=== PATIENT | male | born 1970 | race Caucasian/White ===

== ENCOUNTER 2016-10-21 09:09 | Day surgery (SDC) | payer OTHER ==
[2016-10-17 11:26] VITALS: BMI 25.8
[~2016-10-21 09:09] MED LIST: LACTATED RINGERS 1,000 ML IV SCH
[2016-10-21 09:32] VITALS: TEMP 97.8
[2016-10-21] MEDS ORDERED: LIDOCAINE 1% 20 ML VIAL (10MG/ML) FOR IV START INTRADERMA ONE (09:36)
[2016-10-21] MEDS ORDERED: PROPOFOL 10 MG/ML 20 ML VIAL IV ONE (10:54)
--- NOTE | 2016-10-21 11:30 | P.PCN ---
Date of Procedure: 10/21/16 Preoperative Diagnosis: Postoperative Diagnosis: Procedure(s) Performed: Procedure: Total colonoscopy. Preoperative diagnosis: Screening for neoplasia. Postoperative diagnosis: 1. Mild sigmoid diverticulosis with no evidence of acute diverticulitis or strictures. 2. Low-grade internal hemorrhoids without bleeding at the time of this exam. Preparation HalfLytely prep. Sedation was provided by anesthesia. Brief clinical history: The patient is a 45-year-old male who has been having issues with rectal pain and intermittent rectal bleeding. This followed a diarrheic illness few weeks earlier. At this time, his bowel movements are back to normal and is not having any abdominal symptoms or anemia. There is no family history of colon cancer or inflammatory bowel disease. Procedure: With the patient on his left lateral decubitus position and after informed consent and adequate sedation, the perianal area was inspected and it did not show any fissures or fistulas. There were no masses felt on digital rectal examination. The Olympus CFQ 160L video colonoscope was then inserted in the rectum in the usual fashion and advanced to the cecum. The mucosa appeared healthy. No polyps or tumors were seen. There was occasional small diverticular orifices seen in the sigmoid. I retroflexed the endoscope in the rectum before the endoscope was withdrawn. Low-grade internal hemorrhoids were noted but there was no evidence of bleeding. The patient tolerated the procedure well. Plan: The patient was reassured. Discussed dietary measures and local care for hemorrhoids. He will follow up with you as planned and I recommended repeat exam in 10 years. Implants: Indications for Procedure: Operative Findings: Description of Procedure:
[2016-10-21 11:38] VITALS: RESP 18
[2016-10-21 11:41] VITALS: BP 112/75; PULSE 64
== END 2016-10-21 12:07 | disposition home or self-care (01) ==
LOC: ORWHC2ENDO 09:09
DX: K57.30 Diverticulosis of large intestine without perforation or abscess without bleeding (principal); K64.8 Other hemorrhoids; K21.9 Gastro-esophageal reflux disease without esophagitis; F17.200 Nicotine dependence, unspecified, uncomplicated; Z79.1 Long term (current) use of non-steroidal anti-inflammatories (NSAID); Z79.899 Other long term (current) drug therapy
CPT/HCPCS: 45378; J2704

== ENCOUNTER 2024-09-08 23:24 | Inpatient (IN) | payer OTHER ==
[2024-09-08] MEDS: ASPIRIN 81 MG PO STA (23:40)
[2024-09-08] MEDS: HEPARIN SODIUM 1,000 UN/ML (10ML VL) IV ONE (23:41)
[2024-09-08] MEDS: ONDANSETRON 4 MG/2 ML VIAL IVP STA (23:41)
[2024-09-08] MEDS: ATORVASTATIN 80 MG TAB PO STA (23:41)
--- NOTE | 2024-09-08 23:44 | ED ---
General Adult HPI - General Chief complaint: Chest Pain Stated complaint: Chest pain Time Seen by Provider: 09/08/24 23:32 Source: patient, RN notes reviewed, old records reviewed Mode of arrival: ambulatory Limitations: no limitations - History of Present Illness Initial comments: 53-year-old male, current smoker presenting with substernal chest pain and pressure for the past several hours associated vomiting and diaphoresis. Patient states pain radiates to his jaw and bilateral arms. Patient has no prior history of CAD but does have a family history of coronary disease. - Related Data Home Medications Medication Instructions Recorded Confirmed Diclofenac Potassium [Cataflam] 50 mg PO TID PRN 10/17/16 10/21/16 Meloxicam 15 mg PO DAILY 10/17/16 10/21/16 Omeprazole [PriLOSEC] 20 mg PO BID 10/17/16 10/21/16 hydrOXYzine pamoate [Vistaril] 50 mg PO HS PRN 10/17/16 10/21/16 Allergies Allergy/AdvReac Type Severity Reaction Status Date / Time Penicillins Allergy Unknown Verified 09/08/24 23:31 Review of Systems ROS Statement: Those systems with pertinent positive or pertinent negative responses have been documented in the HPI. ROS Other: All systems not noted in ROS Statement are negative. Past Medical History Past Medical History: GERD/Reflux Additional Past Medical History / Comment(s): rectal pain and blood with wiping x2, dark stools x 1,tennis elbow History of Any Multi-Drug Resistant Organisms: MRSA Date of last positivie culture/infection: 12/02/22 MDRO Source:: Buttock Past Surgical History: No Surgical Hx Reported Additional Past Anesthesia/Blood Transfusion Reaction / Comment(s): never has had anesthesia or a blood transfusion. Past Psychological History: No Psychological Hx Reported Smoking Status: Vaper Past Alcohol Use History: Occasional Past Drug Use History: Marijuana - Past Family History Mother Family Medical History: No Reported History Father Family Medical History: Cancer Additional Family Medical History / Comment(s): lung General Exam Limitations: no limitations General appearance: alert, in no apparent distress Head exam: Present: atraumatic, normocephalic Eye exam: Present: normal appearance, PERRL ENT exam: Present: normal exam Neck exam: Present: normal inspection. Absent: tenderness, meningismus Respiratory exam: Present: normal lung sounds bilaterally. Absent: respiratory distress, wheezes Cardiovascular Exam: Present: regular rate, normal rhythm GI/Abdominal exam: Present: soft. Absent: distended, tenderness, guarding Extremities exam: Present: normal inspection, normal capillary refill Neurological exam: Present: alert, oriented X3 Psychiatric exam: Present: anxious Skin exam: Present: warm, intact, normal color, diaphoretic Course Vital Signs 09/08/24 09/08/24 09/08/24 23:27 23:45 23:50 Temperature 97.4 F L Pulse Rate 61 69 83 Respiratory 15 18 16 Rate Blood Pressure 104/65 113/77 103/85 O2 Sat by Pulse 100 99 98 Oximetry 09/08/24 23:55 Temperature Pulse Rate 61 Respiratory 16 Rate Blood Pressure 108/82 O2 Sat by Pulse 100 Oximetry Medical Decision Making - Medical Decision Making Was pt. sent in by a medical professional or institution (, PA, BIOPSYCHOLOGIST, urgent care, hospital, or longterm...) When possible be specific @ -No Did you speak to anyone other than the patient for history (EMS, parent, family, police, friend...)? What history was obtained from this source @ -No Did you review nursing and triage notes (agree or disagree)? Why? @ -I reviewed and agree with nursing and triage notes Were old charts reviewed (outside hosp., previous admission, EMS record, old EKG, old radiological studies, urgent care reports/EKG's, longterm records)? Report findings @ -No old charts were reviewed Differential Chest Pain: Stable Angina, Unstable Angina, STEMI, NSTEMI Aortic Dissection, Pneumothorax, Musculoskeletal, Esophageal Spasm GERD, Cholecystitis, Pancreatitis, Zoster, this is not meant to be an all-inclusive list. EKG interpreted by me (3pts min.). @Sinus rhythm with ST segment elevation in V3 V4 and aVR with reciprocal change ventricular rate of 67, MA interval 136, QRS duration 106, QTc 408 X-rays interpreted by me (1pt min.). @ -Single view chest x-ray is negative for acute cardiopulmonary disease CT interpreted by me (1pt min.). @ -None done U/S interpreted by me (1pt. min.). @ -None done What testing was considered but not performed or refused? (CT, X-rays, U/S, labs)? Why? @ -None What meds were considered but not given or refused? Why? @ -None Did you discuss the management of the patient with other professionals (professionals i.e. Dr., PA, BIOPSYCHOLOGIST, lab, RT, psych nurse, foster care social worker, adobe architect, teacher, risk control officer, disability case manager)? Give summary @ -[Dr. Malave covering for cardiology, Dr. Grimes covering for Dr. Barboza Was smoking cessation discussed for >3mins.? @ -No Was critical care preformed (if so, how long)? @ -Yes 35 minutes Were there social determinants of health that impacted care today? How? (Homelessness, low income, unemployed, alcoholism, drug addiction, transportation, low edu. Level, literacy, decrease access to med. care, fpc, rehab)? @ -No Was there de-escalation of care discussed even if they declined (Discuss DNR or withdrawal of care, Hospice)? DNR status @ -No What co-morbidities impacted this encounter? (DM, HTN, Smoking, COPD, CAD, Cancer, CVA, ARF, Chemo, Hep., AIDS, mental health diagnosis, sleep apnea, morbid obesity)? @Current smoker family history of CAD Was patient admitted / discharged? Hospital course, mention meds given and rout e, prescriptions, significant lab abnormalities, going to OR and other pertinent info. @3-year-old male presenting with substernal chest pain and pressure for the past several hours associated nausea vomiting and diaphoresis. Pain radiates to bilateral arms and the teeth and jaw. EKG shows ST segment elevation with reciprocal change, Ribbon Inker is activated. Patient given aspirin, heparin, Lipitor in the emergency department. Nitroglycerin held secondary to low systolic pressure. Patient taken urgently to the Ribbon Inker. Undiagnosed new problem with uncertain prognosis? @ -No Drug Therapy requiring intensive monitoring for toxicity (Heparin, Nitro, Insulin, Cardizem)? @ -No Were any procedures done? @ -No Diagnosis/symptom? @ -STEMI Acute, or Chronic, or Acute on Chronic? @ -Acute Uncomplicated (without systemic symptoms) or Complicated (systemic symptoms)? @ complicated Side effects of treatment? @ -No Exacerbation, Progression, or Severe Exacerbation? @ -No Poses a threat to life or bodily function? How? (Chest pain, [place], ID, pneumonia, PE, COPD, DKA, ARF, appy, cholecystitis, CVA, Diverticulitis, Homicidal, Suicidal, threat to staff... and all critical care pts) @ -Yes, ACS, arrhythmia, cardiogenic shock Critical Care Time Critical Care Time: Yes Total Critical Care Time: 35 Disposition Clinical Impression: ST elevation myocardial infarction (STEMI) Disposition: ADMITTED IP TO THIS HOSP Condition: Serious Is patient prescribed a controlled substance at d/c from ED?: No Referrals: Allyssa Barboza MD [Primary Care Provider] - 1-2 days Time of Disposition: 23:44
--- NOTE | 2024-09-08 23:56 | XR ---
EXAMINATION TYPE: XR chest 1V portable DATE OF EXAM: 09/08/2024 11:48 PM COMPARISON: None TECHNIQUE: XR chest 1V portable Portable AP radiograph of the chest. CLINICAL INDICATION:Male, 53 years old with history of chest pain; FINDINGS: Lungs/Pleura: There is no evidence of pleural effusion, focal consolidation, or pneumothorax. Pulmonary vascularity: Unremarkable. Heart/mediastinum: Cardiomediastinal silhouette is unremarkable. Musculoskeletal: No acute osseous pathology. IMPRESSION: No acute cardiopulmonary disease/process. [facility], , 09/08/2024 11:54 PM
[2024-09-09 00:02] LABS: Basophils % (A) 0 %; Eosinophils # (A) 0.1 k/uL (0-0.7); Eosinophils % (A) 1 %; HCT 49.4 % (39.0-53.0); HGB 15.9 gm/dL (13.0-17.5); Lymphocytes # (A) 1.4 k/uL (1.0-4.8); Lymphocytes % (A) 7 %; MCH 28.3 pg (25.0-35.0); MCHC 32.1 g/dL (31.0-37.0); Mean Platelet Volume 7.4; Monocytes # (A) 0.6 k/uL (0-1.0); Monocytes % (A) 3 %; Neutrophils # (A) 18.3 k/uL (1.3-7.7); Neutrophils % (A) 89 %; Platelet Count 309 k/uL (150-450); RBC 5.62 m/uL (4.30-5.90); RDW 12.6 % (11.5-15.5); WBC 20.6 k/uL (3.8-10.6)
--- NOTE | 2024-09-09 00:22 | P.CRDCN ---
History of Present Illness Consult date: 09/09/24 History of present illness: History of Present Illness: The patient is a 53-year-old male with no prior cardiac history who around 7 PM while driving started to complain of chest burning that persisted he subsequently came into the emergency room and was found to have ST segment elevation in the lateral leads with ST segment depression in the inferior and V1 and V2 leads. He has no prior cardiac history. 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 He denies any history of PND, orthopnea or peripheral edema. He continues to have some discomfort in the emergency room. He is in sinus mechanism on presentation. He has a history of smoking, he is nondiabetic no documented hypertension or hyperlipidemia. Medications: None Review of Systems: Respiratory: No history of asthma, bronchitis or recent cough. GI: No nausea or vomiting . No history of peptic ulcer disease. No recent GI bleed. : No hematuria or dysuria. Nervous System: No stroke or seizure. Physical Examination: 53-year-old male, alert oriented no apparent distress,Blood pressure 111/60, Heart rate 72 Head: Normocephalic. Eyes: Sclerae nonicteric. Neck: Good carotid upstroke, no bruit, no jugular venous distention. Lungs: Clear to auscultation. Heart: Regular rate and rhythm, S1-S2, no S3, no rub. No murmur. Abdomen: Soft nontender, positive bowel sounds no organomegaly. Extremities: No edema, intact distal pulses. Labs: Hemoglobin 15.9, WBC 20.6 EKG: Sinus mechanism with ST elevation in lead I, aVL, V3 through V5 with ST segment depression and T wave version in lead V1 V2 leads III and aVF consistent with lateral wall myocardial infarction with repeat reciprocal changes and possible posterior extension Impression: 1. Acute myocardial infarction 2. History of chronic tobacco use, vaping at this time Plan: 1. Proceed with emergent cardiac catheterization, the risks and the complications were discussed with the patient who was in full and standing in agreement 2. Depending on the results of the cardiac catheterization further recommendation will be made 3. Smoking cessation 4. Obtain an echocardiogram with Doppler 5. Thank you for this consult we will follow with you Past Medical History Past Medical History: GERD/Reflux Additional Past Medical History / Comment(s): rectal pain and blood with wiping x2, dark stools x 1,tennis elbow History of Any Multi-Drug Resistant Organisms: MRSA Date of last positivie culture/infection: 12/02/22 MDRO Source:: Buttock Past Surgical History: No Surgical Hx Reported Additional Past Anesthesia/Blood Transfusion Reaction / Comment(s): never has had anesthesia or a blood transfusion. Past Psychological History: No Psychological Hx Reported Smoking Status: Vaper Past Alcohol Use History: Occasional Past Drug Use History: Marijuana - Past Family History Mother Family Medical History: No Reported History Father Family Medical History: Cancer Additional Family Medical History / Comment(s): lung Medications and Allergies Home Medications Medication Instructions Recorded Confirmed Type Diclofenac Potassium [Cataflam] 50 mg PO TID PRN 10/17/16 10/21/16 History Meloxicam 15 mg PO DAILY 10/17/16 10/21/16 History Omeprazole [PriLOSEC] 20 mg PO BID 10/17/16 10/21/16 History hydrOXYzine pamoate [Vistaril] 50 mg PO HS PRN 10/17/16 10/21/16 History Allergies Allergy/AdvReac Type Severity Reaction Status Date / Time Penicillins Allergy Unknown Verified 09/08/24 23:31 Physical Exam Vitals: Vital Signs Temp Pulse Resp BP Pulse Ox 09/09/24 00:05 72 18 111/62 98 09/09/24 00:00 65 18 107/78 99 09/08/24 23:55 61 16 108/82 100 09/08/24 23:50 83 16 103/85 98 09/08/24 23:45 69 18 113/77 99 09/08/24 23:27 97.4 F L 61 15 104/65 100 Intake and Output 09/08/24 09/08/24 09/09/24 14:59 22:59 06:59 Other: Weight 74.843 kg Results 09/08/24 23:43 CBC 09/08/24 Range/Units 23:43 WBC 20.6 H (3.8-10.6) k/uL RBC 5.62 (4.30-5.90) m/uL Hgb 15.9 (13.0-17.5) gm/dL Hct 49.4 (39.0-53.0) % Plt Count 309 (150-450) k/uL Intake and Output 09/08/24 09/08/24 09/09/24 14:59 22:59 06:59 Other: Weight 74.843 kg Patient Weight 09/09/24 06:59 Weight 74.843 kg 09/08/24 23:43
[2024-09-09] MEDS: SODIUM CHLORIDE 0.9% 1,000 ML IV ONE (00:23)
[2024-09-09] MEDS: fentaNYL (PF) 50 MCG/1 ML VIAL IVP ONE (00:27)
[2024-09-09] MEDS: LIDOCAINE 1% INJ 10MG/ML (20 ML MDV) SQ ONE (00:27)
[2024-09-09] MEDS: MIDAZOLAM 2 MG/2 ML VIAL IVP ONE (00:29)
[2024-09-09] MEDS: VERAPAMIL SYRINGE (5 MG/10 ML) INTRAARTER ONE (00:29)
[2024-09-09] MEDS: HEPARIN SODIUM 1,000 UN/ML (10ML VL) IVP ONE (00:32)
[2024-09-09 00:39] LABS: Prothrombin Time 10.7 sec (10.0-12.5)
[2024-09-09] MEDS: PRASUGREL 10 MG TAB PO ONE (00:44)
[2024-09-09 00:49] LABS: ALT 32 U/L (4-49); AST 29 U/L (17-59); African American GFR (CKD) 79 (>60 ml/min/1.73 sqM); Albumin 4.4 g/dL (3.5-5.0); Alkaline Phosphatase 54 U/L (38-126); Anion Gap 11 mmol/L; Blood Urea Nitrogen 16 mg/dL (9-20); Calcium 9.4 mg/dL (8.4-10.2); Carbon Dioxide 26 mmol/L (22-30); Chloride 100 mmol/L (98-107); Glucose 143 mg/dL (74-99); Non-African American GFR(CKD) 68 (>60 ml/min/1.73 sqM); Potassium 4.3 mmol/L (3.5-5.1); Sodium 137 mmol/L (137-145); Total Bilirubin 0.6 mg/dL (0.2-1.3); Total Protein 6.6 g/dL (6.3-8.2)
[2024-09-09] MEDS: ATROPINE SULFATE 0.1 MG/ML 10ML SYRINGE IVP ONE (00:49)
[2024-09-09] MEDS ORDERED: NALOXONE 0.4 MG/ML 1 ML VIAL IV PRN (00:53)
[2024-09-09] MEDS: METOPROLOL TARTRATE 5 MG/5 ML VIAL IVP ONE (01:01)
[2024-09-09] MEDS: IOPAMIDOL-370 100ML BTL INJ ONE ×2 (01:06→01:16)
[2024-09-09] MEDS ORDERED: NITROGLYCERIN SL TABS 0.4 MG TAB SUBLINGUAL PRN (01:23)
[2024-09-09] MEDS ORDERED: MAG HYDROX/AL HYDROX/SIMETH 30 ML CUP PO PRN (01:23)
[2024-09-09] MEDS ORDERED: RX INFO: IV CONTRAST WAS GIVEN 1 EACH MISC MISCELLANE PRN (01:23)
[2024-09-09] MEDS ORDERED: ATROPINE SULFATE 0.1 MG/ML 10ML SYRINGE IV PRN (01:23)
[2024-09-09] MEDS ORDERED: ZOLPIDEM 5 MG TAB PO PRN (01:23)
--- NOTE | 2024-09-09 01:33 | P.CARDCATH ---
Date of Procedure: 09/09/24 Description of Procedure: Cardiac Catheterization: The patient is a 53-year-old male with known history of chronic tobacco use, no history of cardiac disease who presented with an acute myocardial infarction. Recommendations were made regarding cardiac catheterization, the risks and the complications were discussed with the patient who is in full understanding and agreement. Procedure Description: Patient was brought to metallurgical laboratory assistant in fasting semi-sedated state after receiving Fentanyl and Benadryl achieiving moderate conscious sedated state. Using Xylocaine Anesthesia and modified Seldinger technique, a 6-Libyan sheath was introduced in the right radial artery . Subsequently, selective coronary angiography was performed using a 5-Libyan 3.5 bend Rhys catheter. Multiple views of the coronary artery including hemiaxial views were obtained. The 5 Libyan pigtail catheter was used to cross the aortic valve and LVEDP was calculated. PCI: After removing the catheters a 6 Libyan AL 0.75 guiding catheter was introduced and after cannulating the right coronary ostium a 0.014 BMW J-wire was posit ioned in the distal RCA. Subsequently a 2.5 x 12 mm trek balloon was advanced and 2 inflations at 8 karlene was done. After removing the balloon a 4.0 x 33 mm Xience colt point stent was advanced and dilated at 16 karlene. After removing the balloon a [employer] [place] eye IVUS catheter was introduced and imaging was performed and revealed a distal lumen of 4.2 to 4.5 mm. The stent was well opened but under deployed proximally. Subsequently 4.0 x 20 mm NC trek balloon was advanced and 2 inflations at 10 karlene were done. After the last inflation the wire and the balloon were removed images were obtained and revealed stable successful stenting. Following that, catheter and sheath were removed. Hemostasis was obtained with deployment of vascular band . There was no immediate complication. Patient was returned to room in stable condition. Of note, the patient received a total of 6000 units of intravenous heparin as well as intra-arterial verapamil. His ACT was followed. He received an oral loading dose of prasugrel. He had an episode of ventricular fibrillation during the procedure requiring cardioversion x 1 with latter day of sinus mechanism. He had an episode of bradycardia and received IV atropine. At the end of the procedure his blood pressure and heart rate were stable. Findings: Left main: This is a short size vessel, bifurcating into LAD and left circumflex, left main has no obstructive disease LAD: This is a large size vessel, giving rise to a large proximal diagonal branch that has no obstructive disease, the mid LAD has 10 to 20% plaque, the rest of the vessel has no high-grade stenosis Left circumflex: This is a large nondominant vessel giving rise to a large obtuse marginal branch that has no evidence of obstructive disease RCA: This vessel is a dominant vessel totally occluded in the midsegment with no antegrade flow Left Ventriculogram: Not performed Hemodynamics: There was no gradient across the aortic valve, LVEDP was 18-22 mmHg Conclusion: 1. Acutely occluded mid RCA 2. Mild disease in the mid LAD 3. Successful stenting of the mid RCA with reduction of stenosis from 100% to less than 5% with TANJA-3 flow and IVUS imaging 4. Right dominance Recommendations: The patient will continue on aspirin and prasugrel without any interruption for 1 year in addition to aggressive coronary risks modification, maintaining LDL below 70 mg/dL. The importance of smoking cessation was discussed with the patient and he was referred to [place] quit line. The findings and the recommendations were discussed with the patient and the family and they were in full understanding and agreement. Duration of sedation is 50 minutes.
[2024-09-09 01:40] LABS: Glucose,Whole Blood 97 mg/dL (70-110)
[2024-09-09] MEDS: SODIUM CHLORIDE 0.9% 1,000 ML in EMPTY BAG 1 BAG IV SCH (02:00)
[2024-09-09 06:00] LABS: African American GFR (CKD) >90 (>60 ml/min/1.73 sqM); Anion Gap 7 mmol/L; Blood Urea Nitrogen 16 mg/dL (9-20); Calcium 8.6 mg/dL (8.4-10.2); Carbon Dioxide 24 mmol/L (22-30); Chloride 103 mmol/L (98-107); Glucose 129 mg/dL (74-99); Non-African American GFR(CKD) >90 (>60 ml/min/1.73 sqM); Potassium 4.1 mmol/L (3.5-5.1); Sodium 134 mmol/L (137-145)
[2024-09-09] MEDS: METOPROLOL TARTRATE 25 MG TAB PO SCH (08:12)
[2024-09-09] MEDS: ASPIRIN 81 MG PO SCH (08:17)
[2024-09-09 08:37] LABS: Chol/HDL Ratio 3.28 Ratio; LDL Cholesterol,Calculated 90.1 mg/dL (0.0-131.0); VLDL Calculation 12.76 mg/dL (5.00-40.00)
[2024-09-09] MEDS ORDERED: FLUTICASONE NASAL 50MCG/SPRAY 16GM BTL EA NOSTRIL PRN (09:19)
--- NOTE | 2024-09-09 09:24 | P.HPIM ---
History of Present Illness H&P Date: 09/09/24 Bert Hernandez is a 53-year-old patient of Dr. Barboza who presented with complaints of substernal chest pain that been going on for several hours with associated vomiting and diaphoresis. Patient also noted radiation of pain to jaw and bilateral arms. Patient has past medical history of GERD MRSA current everyday smoker vaping and marijuana use.Chest x-ray completed showing no acute cardiopulmonary disease chest x-ray completed showing no acute cardiopulmonary disease. EKG completed showing sinus rhythm with sinus rhythm and ST elevation noted in lateral leads. Troponin elevated 0.110. Cardiology team notified and patient was taken to cardiac catheterization lab patient received stent to the RCA right radial approach. Patient was transferred To the intensive care unit patient is alert and oriented x 3. Patient was started on Effient per cardiology. 2D echo has been ordered. At this time patient denies chest pain or shortness of breath. Patient denies nausea vomiting or diarrhea. Patient denies any urinary burning or frequency. Current vital signs temp 98, heart rate 57, respiratory rate 18, blood pressure 92/62 with pulse ox 98% on room air Review of Systems Please refer to HPI otherwise unremarkable Past Medical History Past Medical History: GERD/Reflux Additional Past Medical History / Comment(s): Right thumb cartiledge issue, seasonal allergies History of Any Multi-Drug Resistant Organisms: Acinetobacter (MDRO), MRSA Date of last positivie culture/infection: 12/02/22 MDRO Source:: Buttock Past Surgical History: Heart Catheterization With Stent Additional Past Anesthesia/Blood Transfusion Reaction / Comment(s): never has had anesthesia or a blood transfusion. Date of Last Stent Placement:: 09/08/2024 Past Psychological History: No Psychological Hx Reported Smoking Status: Current some day smoker, Vaper Past Alcohol Use History: Occasional Additional Past Alcohol Use History / Comment(s): <1ppd started at age 19 Past Drug Use History: Marijuana Additional Drug Use History / Comment(s): medical marijuana smokes marijuana- last used 2 days ago - Past Family History Mother Family Medical History: No Reported History Father Family Medical History: Cancer Additional Family Medical History / Comment(s): lung Medications and Allergies Home Medications Medication Instructions Recorded Confirmed Type Meloxicam 15 mg PO DAILY 10/17/16 09/09/24 History Omeprazole [PriLOSEC] 20 mg PO BID 10/17/16 09/09/24 History hydrOXYzine pamoate [Vistaril] 50 mg PO HS PRN 10/17/16 09/09/24 History Fluticasone Nasal [place] [Flonase 2 spr EA NOSTRIL BID PRN 09/09/24 09/09/24 History Nasal [place]] Montelukast [Singulair] 10 mg PO DAILY 09/09/24 09/09/24 History Allergies Allergy/AdvReac Type Severity Reaction Status Date / Time Penicillins Allergy Unknown Verified 09/09/24 08:14 Physical Exam Vitals: Vital Signs Temp Pulse Pulse Resp BP BP Pulse Ox 09/09/24 08:00 98 F 57 L 18 92/62 98 09/09/24 07:00 55 L 12 93/64 98 09/09/24 06:45 52 L 7 L 93/64 98 09/09/24 06:30 55 L 6 L 93/64 97 09/09/24 06:15 92/54 09/09/24 06:00 65 11 L 90/67 96 09/09/24 05:45 58 L 6 L 90/67 96 09/09/24 05:30 66 17 90/67 97 09/09/24 05:15 56 L 15 90/67 97 09/09/24 05:00 58 L 14 94/64 96 09/09/24 04:45 60 13 94/64 97 09/09/24 04:30 63 14 94/64 97 09/09/24 04:15 91 19 94/64 95 09/09/24 04:00 60 12 93/65 97 09/09/24 03:45 66 15 93/65 98 09/09/24 03:30 65 14 93/65 97 09/09/24 03:15 63 13 93/65 97 09/09/24 03:00 71 14 97/66 95 09/09/24 02:50 75 14 97/66 96 09/09/24 02:40 72 15 98/63 97 09/09/24 02:30 71 15 98/63 98 09/09/24 02:20 93 17 98/63 97 09/09/24 02:10 93 20 98/63 98 09/09/24 02:00 90 19 98/63 95 09/09/24 01:50 91 22 98/63 97 09/09/24 01:40 21 09/09/24 01:38 92 16 98/63 97 09/09/24 01:37 93 22 09/09/24 01:23 92 16 98/63 97 09/09/24 01:06 82 16 98/63 09/09/24 00:10 59 L 16 110/81 99 09/09/24 00:05 72 18 111/62 98 09/09/24 00:00 65 18 107/78 99 09/08/24 23:55 61 16 108/82 100 09/08/24 23:50 83 16 103/85 98 09/08/24 23:45 69 18 113/77 99 09/08/24 23:27 97.4 F L 61 15 104/65 100 Intake and Output 09/08/24 09/09/24 09/09/24 22:59 06:59 14:59 Intake Total 1225 0 Output Total 500 0 Balance 725 0 Intake: IV 900 Intake, IV Titration 225 0 Amount Sodium Chloride 0.9% 1, 225 0 000 ml In Empty Bag 1 bag @ 1 ML/KG/HR 74.843 mls/ hr IV .[id number] [facility] Rx#: [id number] Oral 100 Output: Urine 500 0 Other: Voiding Method Urinal Urinal # Voids 1 Weight 73 kg Head normocephalic Neck supple Lungs clear to auscultation bilaterally no wheezing or crackles Heart regular rate and rhythm S1-S2, no rub or gallop Abdomen is soft nontender nondistended positive bowel sounds no hepatosplenomegaly Extremities no edema Neuro alert and orientated to 3 Results CBC & Chem 7: 09/08/24 23:43 09/09/24 03:05 Labs: Abnormal Lab Results - Last 24 Hours (Table) 09/08/24 09/08/24 09/08/24 Range/Units 23:43 23:43 23:43 WBC 20.6 H (3.8-10.6) k/uL Neutrophils # 18.3 H (1.3-7.7) k/uL APTT 21.0 L (22.0-30.0) sec Sodium (137-145) mmol/L Glucose 143 H (74-99) mg/dL Troponin I (0.000-0.034) ng/mL 09/08/24 09/09/24 Range/Units 23:43 03:05 WBC (3.8-10.6) k/uL Neutrophils # (1.3-7.7) k/uL APTT (22.0-30.0) sec Sodium 134 L (137-145) mmol/L Glucose 129 H (74-99) mg/dL Troponin I 0.110 H* (0.000-0.034) ng/mL Thrombosis Risk Factor Assmnt - Choose All That Apply Each Factor Represents 1 point: Acute NH, Age 41-60 years Other Risk Factors: No Other congenital or acquired thrombophilia - If yes, enter type in comment: No Thrombosis Risk Factor Assessment Total Risk Factor Score: 2 Thrombosis Risk Factor Assessment Level: Low Risk Assessment and Plan Assessment: 1. STEMI status post stent to the RCA 2. History of GERD 3. Current everyday smoker. Patient educated greater than 3 minutes on the importance of complete smoking cessatuib nicotine patch will be ordered 4. Marijuana use 5. Leukocytosis likely reactive repeat labs ordered Cardiology services consulted 2D echo ordered Repeat labs ordered Time with Patient: Greater than 30 (Greater than 60% of the total time spent in counseling and coordination of care)
[2024-09-09] MEDS: SODIUM CHLORIDE 0.9% 500 ML 500 ML IV ONE ×2 (10:46→13:44)
--- NOTE | 2024-09-09 12:07 | CA ---
Transthoracic Echo Report Name: Bert Hernandez Age: 53 Gender: M : 1970 Exam Date: 09/09/2024 07:30 Exam Location: [facility] Ht (in): 69 Wt (lb): 168 Ordering Physician: Samara Arias MD ([id number]) Attending/Referring Phys: Cereal Supervisor Jennifer Rahman RDCS Procedure CPT: Indications: [place] Cardiac Hx: Technical Quality: Good Contrast 1: Total Dose (mL): Contrast 2: Total Dose (mL): MEASUREMENTS (Male / Female) Normal Values 2D ECHO LV Diastolic Diameter PLAX 4.2 cm 4.2 - 5.9 / 3.9 - 5.3 cm LV Systolic Diameter PLAX 3.3 cm IVS Diastolic Thickness 1.2 cm 0.6 - 1.0 / 0.6 - 0.9 cm LVPW Diastolic Thickness 1.3 cm 0.6 - 1.0 / 0.6 - 0.9 cm LV Relative Wall Thickness 0.6 RV Internal Dim ED PLAX 3.2 cm LA Systolic Diameter LX 3.6 cm 3.0 - 4.0 / 2.7 - 3.8 cm LV Diastolic Volume MOD BP 95.0 cm??? 67 - 155 / 56 - 104 cm??? LV Systolic Volume MOD BP 49.0 cm??? 22 - 58 / 19 - 49 cm??? LV Ejection Fraction MOD BP 48.4 % >= 55 % LV Cardiac Index MOD BP 1307.9 cm???/min???m??? LV Diastolic Volume MOD 4C 93.1 cm??? LV Systolic Volume MOD 4C 40.6 cm??? LV Ejection Fraction MOD 4C 56.4 % LV Cardiac Index MOD 4C 1493.5 cm???/min???m??? LV Diastolic Length 4C 8.1 cm LV Systolic Length 4C 6.5 cm LV Diastolic Volume MOD 2C 93.3 cm??? LV Systolic Volume MOD 2C 51.2 cm??? LV Ejection Fraction MOD 2C 45.1 % LV Cardiac Index MOD 2C 1197.6 cm???/min???m??? LV Diastolic Length 2C 8.5 cm LV Systolic Length 2C 7.5 cm M-MODE Aortic Root Diameter MM 3.3 cm DOPPLER AV Peak Velocity 113.7 cm/s AV Peak Gradient 5.2 mmHg Mitral E Point Velocity 102.3 cm/s Mitral A Point Velocity 69.5 cm/s Mitral E to A Ratio 1.5 MV Deceleration Time 163.7 ms MV E' Velocity 9.2 cm/s Mitral E to MV E' Ratio 11.1 TR Peak Velocity 218.1 cm/s TR Peak Gradient 19.0 mmHg Right Ventricular Systolic Press 34.1 mmHg FINDINGS Left Ventricle Left ventricular ejection fraction is estimated at 50-55 %. Left ventricular cavity size normal. Mildly increased septal wall thickness. Mildly decreased left ventricular ejection fraction. Right Ventricle Normal right ventricular size and function. Borderline PHTN Right Atrium Normal right atrial size. No right atrial thrombus or mass seen. Left Atrium Normal left atrial size. No left atrial thrombus or mass present. Mitral Valve Structurally normal mitral valve. No evidence for mitral valve prolapse. No mitral stenosis. Mild mitral regurgitation. Aortic Valve Trileaflet aortic valve. No aortic valve stenosis or regurgitation. Tricuspid Valve Structurally normal tricuspid valve. Mild tricuspid regurgitation. Pulmonic Valve Structurally normal pulmonic valve. Trace to mild pulmonic regurgitation. Pericardium No pericardial effusion. Aorta Normal size aortic root and proximal ascending aorta. CONCLUSIONS Indication: Myocardial infarction Left ventricular systolic function at the lower limits of normal with inferior and septal hypokinesis Previewed by: Dr. Rakesh Welch MD (Electronically Signed) Final Date: 09 September 2024 12:06
[2024-09-09] MEDS: MAGNESIUM SULFATE-D5W PMX 1 GM in DEXTROSE/WATER 1 100ML.BAG IVPB SCH (13:42)
[2024-09-09] MEDS: PRASUGREL 10 MG TAB PO STA (13:48)
[2024-09-09 14:27] VITALS: BMI 23.8
[2024-09-09] MEDS: PANTOPRAZOLE 40 MG TABLET PO SCH (20:41)
[2024-09-09] MEDS: ATORVASTATIN 80 MG TAB PO SCH (20:41)
[2024-09-10 03:23] LABS: Basophils % (A) 0 %; Eosinophils # (A) 0.1 k/uL (0-0.7); Eosinophils % (A) 1 %; HCT 43.3 % (39.0-53.0); HGB 13.4 gm/dL (13.0-17.5); Lymphocytes # (A) 2.2 k/uL (1.0-4.8); Lymphocytes % (A) 23 %; MCH 27.8 pg (25.0-35.0); MCV 89.8 fL (80.0-100.0); Mean Platelet Volume 8.1; Monocytes # (A) 0.8 k/uL (0-1.0); Monocytes % (A) 8 %; Neutrophils # (A) 6.1 k/uL (1.3-7.7); Neutrophils % (A) 65 %; Platelet Count 210 k/uL (150-450); RBC 4.82 m/uL (4.30-5.90); RDW 13.1 % (11.5-15.5); WBC 9.3 k/uL (3.8-10.6)
[2024-09-10 03:43] LABS: ALT 62 U/L (4-49); AST 158 U/L (17-59); African American GFR (CKD) >90 (>60 ml/min/1.73 sqM); Albumin 3.1 g/dL (3.5-5.0); Alkaline Phosphatase 40 U/L (38-126); Anion Gap 6 mmol/L; Blood Urea Nitrogen 14 mg/dL (9-20); Calcium 8.8 mg/dL (8.4-10.2); Carbon Dioxide 24 mmol/L (22-30); Chloride 108 mmol/L (98-107); Glucose 96 mg/dL (74-99); Non-African American GFR(CKD) 80 (>60 ml/min/1.73 sqM); Potassium 4.1 mmol/L (3.5-5.1); Sodium 138 mmol/L (137-145); Total Bilirubin 0.6 mg/dL (0.2-1.3); Total Protein 5.1 g/dL (6.3-8.2)
--- NOTE | 2024-09-10 08:53 | P.PN ---
Subjective Progress Note Date: 09/10/24 Bert Hernandez is a 53-year-old patient of Dr. Barboza who presented with complaints of substernal chest pain that been going on for several hours with associated vomiting and diaphoresis. Patient also noted radiation of pain to jaw and bilateral arms. Patient has past medical history of GERD MRSA current everyday smoker vaping and marijuana use.Chest x-ray completed showing no acute cardiopulmonary disease chest x-ray completed showing no acute cardiopulmonary disease. EKG completed showing sinus rhythm with sinus rhythm and ST elevation noted in lateral leads. Troponin elevated 0.110. Cardiology team notified and patient was taken to cardiac catheterization lab patient received stent to the RCA right radial approach. Patient was transferred To the intensive care unit patient is alert and oriented x 3. Patient was started on Effient per cardiology. 2D echo has been ordered. At this time patient denies chest pain or shortness of breath. Patient denies nausea vomiting or diarrhea. Patient denies any urinary burning or frequency. Current vital signs temp 98, heart rat e 57, respiratory rate 18, blood pressure 92/62 with pulse ox 98% on room air On 09/10/2024 patient was seen and examined in the ICU, he is alert and oriented x 3 in no apparent distress, he denies any symptoms at this time, there is no fever or chills no headache or dizziness no chest pain no shortness of breath no cough no nausea or vomiting no abdominal pain no diarrhea and no urinary symptoms. Blood pressure readings on the low side currently 96/67. Awaiting cardiology rounds to assess possible discharge to home today. Objective - Vital Signs Vital signs: Vital Signs Temp 98.2 F 09/10/24 00:00 Pulse 55 L 09/10/24 07:00 Resp 24 09/10/24 07:00 BP 96/67 09/10/24 07:00 Pulse Ox 97 09/10/24 07:00 FiO2 Intake & Output 09/09/24 09/10/24 09/10/24 18:59 06:59 18:59 Intake Total 2000 Output Total 0 0 0 Balance 2000 0 0 Weight 73 kg Intake: IV 1200 Magnesium Sulfate-D5w Pmx 200 1 gm In Dextrose/Water 1 100ml.bag @ 100 mls/hr IVPB Q1H BETI Rx#: [id number] Sodium Chloride 0.9% 500 1000 ml 500 ml @ 999 mls/hr IV .Q31M ONE Rx#:[id number] Intake, IV Titration 0 Amount Sodium Chloride 0.9% 1, 0 000 ml In Empty Bag 1 bag @ 1 ML/KG/HR 74.843 mls/ hr IV .[id number] [facility] Rx#: [id number] Oral 800 Output: Urine 0 0 0 Other: Voiding Method Urinal Toilet Urinal # Voids 1 1 - Exam In general patient is alert and oriented x 3 in no distress HEENT head normocephalic and atraumatic Neck is supple no JVD no goiter no lymphadenopathy no carotid bruit Chest examination is clear to auscultation no crackles no wheezing Cardiac exam reveals regular heart sounds S1 and S2 no gallops no murmurs Abdomen is soft nontender no organomegaly with normal bowel sounds Extremity exam reveals no edema no cyanosis or clubbing Neurological examination reveals no gross focal deficits - Labs CBC & Chem 7: 09/10/24 02:36 09/10/24 02:36 Labs: Abnormal Lab Results - Last 24 Hours (Table) 09/10/24 Range/Units 02:36 Chloride 108 H (98-107) mmol/L AST 158 H (17-59) U/L ALT 62 H (4-49) U/L Total Protein 5.1 L (6.3-8.2) g/dL Albumin 3.1 L (3.5-5.0) g/dL Assessment and Plan Assessment: 1. STEMI status post stent to the RCA 2. History of GERD 3. Current everyday smoker. Patient educated greater than 3 minutes on the importance of complete smoking cessatuib nicotine patch will be ordered 4. Marijuana use 5. Leukocytosis likely reactive repeat labs ordered Cardiology services consulted 2D echo ordered Repeat labs ordered
[2024-09-10] MEDS: NICOTINE 14MG/24HR PATCH TRANSDERM SCH (09:26)
[2024-09-10] MEDS: PRASUGREL 10 MG TAB PO SCH (09:26)
[2024-09-10] MEDS: MONTELUKAST 10 MG TAB PO SCH (09:26)
[2024-09-10 16:03] VITALS: TEMP 98.2
[2024-09-10 17:09] VITALS: BP 102/70; PULSE 68; RESP 23
--- NOTE | 2024-09-10 17:55 | P.DS ---
Providers Date of admission: 09/09/24 00:54 Expected date of discharge: 09/10/24 Attending physician: Leena Grimes Consults: 09/09/24 00:53 Consult Physician Stat Consulting Provider: Samara Arias Consult Reason/Comments: STEMI Do you want consulting provider notified?: Already Contacted 09/09/24 01:23 Consult Physician Routine Consulting Provider: [facility] Consult Reason/Comments: Post Interventional Patient Do you want consulting provider notified?: Already Contacted Primary care physician: Allyssa Barboza Hospital Course: Diagnosis on discharge: 1. STEMI status post stent to the RCA 2. History of GERD 3. Current everyday smoker. Patient educated greater than 3 minutes on the importance of complete smoking cessatuib nicotine patch will be ordered 4. Marijuana use 5. Leukocytosis likely reactive repeat labs ordered Hospital course: Bert Hernandez is a 53-year-old patient of Dr. Barboza who presented with complaints of substernal chest pain that been going on for several hours with associated vomiting and diaphoresis. Patient also noted radiation of pain to jaw and bilateral arms. Patient has past medical history of GERD MRSA current everyday smoker vaping and marijuana use.Chest x-ray completed showing no acute cardiopulmonary disease chest x-ray completed showing no acute cardiopulmonary disease. EKG completed showing sinus rhythm with sinus rhythm and ST elevation noted in lateral leads. Troponin elevated 0.110. Cardiology team notified and patient was taken to cardiac catheterization lab patient received stent to the RCA right radial approach. Patient was transferred To the intensive care unit patient is alert and oriented x 3. Patient was started on Effient per cardiology. 2D echo has been ordered. At this time patient denies chest pain or shortness of breath. Patient denies nausea vomiting or diarrhea. Patient denies any urinary burning or frequency. Current vital signs temp 98, heart rate 57, respiratory rate 18, blood pressure 92/62 with pulse ox 98% on room air On 09/10/2024 patient was seen and examined in the ICU, he is alert and oriented x 3 in no apparent distress, he denies any symptoms at this time, there is no fever or chills no headache or dizziness no chest pain no shortness of breath no cough no nausea or vomiting no abdominal pain no diarrhea and no urinary symptoms. Blood pressure readings on the low side currently 96/67. Patient was evaluated by Dr Quintero cardiology, and cleared for discharge. follow up with PCP within 1 week follow up with cardiology in 1 to 2 weeks Patient Condition at Discharge: Serious Plan - Discharge Summary New Discharge Prescriptions: New Aspirin 81 mg PO DAILY 30 Days #30 tab Atorvastatin [Lipitor] 80 mg PO HS 30 Days #30 tab Prasugrel [Effient] 10 mg PO DAILY 30 Days #30 tab Nitroglycerin Sl Tabs [Nitrostat] 0.4 mg SUBLINGUAL Q5M PRN 30 Days #25 tab PRN Reason: Chest Pain Metoprolol Succinate (ER) [Toprol XL] 12.5 mg PO DAILY 30 Days #30 tab Continue hydrOXYzine pamoate [Vistaril] 50 mg PO HS PRN PRN Reason: Insomnia Meloxicam 15 mg PO DAILY Omeprazole [PriLOSEC] 20 mg PO BID Montelukast [Singulair] 10 mg PO DAILY Fluticasone Nasal [place] [Flonase Nasal [place]] 2 spr EA NOSTRIL BID PRN PRN Reason: Allergy Symptoms Discharge Medication List Meloxicam 15 mg PO DAILY 10/17/16 [History] Omeprazole [PriLOSEC] 20 mg PO BID 10/17/16 [History] hydrOXYzine pamoate [Vistaril] 50 mg PO HS PRN 10/17/16 [History] Fluticasone Nasal [place] [Flonase Nasal [place]] 2 spr EA NOSTRIL BID PRN 09/09/24 [History] Montelukast [Singulair] 10 mg PO DAILY 09/09/24 [History] Aspirin 81 mg PO DAILY 30 Days #30 tab 09/10/24 [Rx] Atorvastatin [Lipitor] 80 mg PO HS 30 Days #30 tab 09/10/24 [Rx] Metoprolol Succinate (ER) [Toprol XL] 12.5 mg PO DAILY 30 Days #30 tab 09/10/24 [Rx] Nitroglycerin Sl Tabs [Nitrostat] 0.4 mg SUBLINGUAL Q5M PRN 30 Days #25 tab 09/10/24 [Rx] Prasugrel [Effient] 10 mg PO DAILY 30 Days #30 tab 09/10/24 [Rx] Follow up Appointment(s)/Referral(s): Allyssa Barboza MD [Primary Care Provider] - 1-2 days Patient Instructions/Handouts: Heart Attack (DC), How to Stop Smoking (DC), Heart Healthy Diet (DC)
[2024-09-10] MEDS ORDERED: METOPROLOL SUCCINATE (ER) 25 MG TAB.ER.24H PO SCH (18:26)
--- NOTE | 2024-09-10 22:51 | P.PN ---
Subjective Progress Note Date: 09/10/24 History of Present Illness: The patient is a 53-year-old male with no prior cardiac history who around 7 [address] started to complain of chest burning that persisted he subsequently came into the emergency room and was found to have ST segment elevation in the lateral leads with ST segment depression in the inferior and V1 and V2 leads. He has no prior cardiac history. 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 He denies any history of PND, orthopnea or peripheral edema. He continues to have some discomfort in the emergency room. He is in sinus mechanism on presentation. He has a history of smoking, he is nondiabetic no documented hypertension or hyperlipidemia. Medications: None Review of Systems: Respiratory: No history of asthma, bronchitis or recent cough. GI: No nausea or vomiting . No history of peptic ulcer disease. No recent GI bleed. : No hematuria or dysuria. Nervous System: No stroke or seizure. Physical Examination: 53-year-old male, alert oriented no apparent distress,Blood pressure 111/60, Heart rate 72 Head: Normocephalic. Eyes: Sclerae nonicteric. Neck: Good carotid upstroke, no bruit, no jugular venous distention. Lungs: Clear to auscultation. Heart: Regular rate and rhythm, S1-S2, no S3, no rub. No murmur. Abdomen: Soft nontender, positive bowel sounds no organomegaly. Extremities: No edema, intact distal pulses. Labs: Hemoglobin 15.9, WBC 20.6 EKG: Sinus mechanism with ST elevation in lead I, aVL, V3 through V5 with ST segment depression and T wave version in lead V1 V2 leads III and aVF consistent with lateral wall myocardial infarction with repeat reciprocal changes and possible posterior extension Echocardiogram shows preserved LVEF of 55% with no major valvular abnormality Impression: 1. Acute myocardial infarction status post PCI to RCA 2. History of chronic tobacco use, vaping at this time Plan: Continue dual antiplatelets, Lipitor Reduce metoprolol succinate to 12.5 mg daily. Low-dose beta-ladonna because of low resting heart rate and blood pressure Outpatient follow-up with Dr. Arias with recommended cardiac rehab Patient is cleared from cardiovascular standpoint to be discharged Objective - Vital Signs Vital signs: Vital Signs Temp 98.2 F 09/10/24 16:00 Pulse 68 09/10/24 17:00 Resp 23 09/10/24 17:00 BP 102/70 09/10/24 17:00 Pulse Ox 96 09/10/24 17:00 FiO2 Intake & Output 09/10/24 09/10/24 09/11/24 06:59 18:59 06:59 Intake Total 900 Output Total 0 0 Balance 0 900 Intake: Oral 900 Output: Urine 0 0 Other: Voiding Method Toilet Toilet Urinal Urinal # Voids 1 1 - Labs CBC & Chem 7: 09/10/24 02:36 09/10/24 02:36 Labs: Abnormal Lab Results - Last 24 Hours (Table) 09/10/24 Range/Units 02:36 Chloride 108 H (98-107) mmol/L AST 158 H (17-59) U/L ALT 62 H (4-49) U/L Total Protein 5.1 L (6.3-8.2) g/dL Albumin 3.1 L (3.5-5.0) g/dL
[2024-09-11] MEDS ORDERED: METOPROLOL SUCCINATE (ER) 25 MG TAB.ER.24H PO SCH ×2 (09:00)
== END 2024-09-10 18:52 | disposition home or self-care (01) | DRG 174 ==
LOC: EC 23:24 → 2SICU 09-09 00:54
PROVIDERS: ADMIT Internal Medicine; ATTEND Internal Medicine
PROC: B2111ZZ Fluoroscopy of Multiple Coronary Arteries using Low Osmolar Contrast (ICD-10-PCS; principal; 2024-09-09 00:07)
PROC: 4A023N7 Measurement of Cardiac Sampling and Pressure, Left Heart, Percutaneous Approach (ICD-10-PCS; principal; 2024-09-09 00:07)
PROC: 027034Z Dilation of Coronary Artery, One Artery with Drug-eluting Intraluminal Device, Percutaneous Approach (ICD-10-PCS; principal; 2024-09-09 00:07)
PROC: B240ZZ3 Ultrasonography of Single Coronary Artery, Intravascular (ICD-10-PCS; principal; 2024-09-09 00:07)
DX: I21.3 ST elevation (STEMI) myocardial infarction of unspecified site (principal); D72.829 Elevated white blood cell count, unspecified; F17.290 Nicotine dependence, other tobacco product, uncomplicated; I25.10 Atherosclerotic heart disease of native coronary artery without angina pectoris; Z79.1 Long term (current) use of non-steroidal anti-inflammatories (NSAID); K21.9 Gastro-esophageal reflux disease without esophagitis; J30.2 Other seasonal allergic rhinitis; G47.00 Insomnia, unspecified; E78.5 Hyperlipidemia, unspecified; Z88.0 Allergy status to penicillin; Z71.6 Tobacco abuse counseling; Z79.899 Other long term (current) drug therapy; Z71.3 Dietary counseling and surveillance; Z60.2 Problems related to living alone; Z28.21 Immunization not carried out because of patient refusal
CPT/HCPCS: 36415; 71045; 80048; 80053; 80061; 83735; 84484; 85025; 85610; 85730; 92978; 93005; 93306; 93458; 96374; 96375; 99291